=== PATIENT | female | born 2000 | race Caucasian/White ===

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

== ENCOUNTER 2018-05-28 23:38 | Emergency (ER) | payer MEDICAID ==
[~2018-05-28] VITALS: Ht 167.6 cm; Wt 68.9 kg
[2018-05-28 23:42] VITALS: BP 134/73
--- NOTE | 2018-05-28 23:49 | NUR ---
PT AMBULATED TO BED 7 WITH VSS.
--- NOTE | 2018-05-29 00:14 | NUR ---
PT PRESENTS TO ED WITH C/O VAGINAL BLEEDING X 1 DAY. PT REPORTS BLEEDING THROUGH PAD WITH DARK RED BLOOD. PT DENIES ABDOMINAL PAIN, N/V/D AT THIS TIME. PT DENIES ANY OTHER SYMPTOMS AT THIS TIME. PT PLACED INTO BED, PENDING MD SANCHES. PT REPORTS OF 1 MONTH. [id number]. PMH--ASMTHA RX--DENIES
[2018-05-29 00:21] LABS: APPEARANCE,URINE SL CLOUDY (CLEAR); BILIRUBIN,URINE NEGATIVE (NEGATIVE); BLOOD, URINE 3+ (NEGATIVE); COLOR,URINE YELLOW (YELLOW); LEUKOCYTE ESTERASE ,URINE NEGATIVE (NEGATIVE); NITRITE, URINE NEGATIVE (NEGATIVE); UGLUCOSE NEGATIVE (NEGATIVE)
[2018-05-29 00:22] LABS: BASOPHILS % (AUTO) 0.5 % (0.0-2.0); EOSINOPHILS # (AUTO) 0.1 K/uL (0-0.4); EOSINOPHILS % (AUTO) 0.7 % (0.0-4.0); HEMOGLOBIN 9.3 g/dL (12.0-16.0); LYMPHOCYTES # (AUTO) 2.7 K/uL (2.5-16.5); LYMPHOCYTES % (AUTO) 34.3 % (20.5-51.1); MEAN CORPUSCULAR HEMOGLOBIN 19 pg (27-31); MEAN CORPUSCULAR HGB CONC 30 g/dL (33-37); MONOCYTES # (AUTO) 0.7 K/uL (0.8-1.0); MONOCYTES % (AUTO) 8.2 % (1.7-9.3); NEUTROPHILS # (AUTO) 4.5 K/uL (1.8-7.7); NEUTROPHILS % (AUTO) 56.3 % (42.2-75.2); PLATELET COUNT (AUTO) 340 K/uL (140-450); RED BLOOD CELL COUNT(AUTO) 4.85 MIL/uL (4.20-5.40); WHITE BLOOD COUNT (AUTO) 7.9 K/uL (4.5-11.0)
[2018-05-29 00:29] LABS: HEMATOCRIT 27.9 % (36-48); MEAN CORPUSCULAR VOLUME 63.7 fL (80-94); RED CELL DISTRIBUTION WIDTH 20.7 % (11.6-13.7)
[2018-05-29 00:35] LABS: RBC,URINE 3-10 (FEW) /HPF (0-5); WBC,URINE 0-5 (RARE) /HPF (0-5)
[2018-05-29 00:46] VITALS: BP 134/73
--- NOTE | 2018-05-29 00:47 | NUR ---
Patient discharged with v/s stable. Written and verbal after care instructions given and explained. Patient verbalized understanding. Ambulatory with steady gait. All questions addressed prior to discharge. Advised to follow up with PMD.
== END 2018-05-29 00:47 | disposition home or self-care (01) ==
LOC: MED 23:38
DX: O03.9 Complete or unspecified spontaneous abortion without complication (principal); J45.909 Unspecified asthma, uncomplicated
CPT/HCPCS: 36415; 81001; 84702; 85025; 99283

== ENCOUNTER 2019-07-07 17:57 | Emergency (ER) | payer MEDICAID ==
[~2019-07-07] VITALS: Ht 167.6 cm; Wt 66.0 kg
[2019-07-07 18:04] VITALS: BP 124/62
--- NOTE | 2019-07-07 18:07 | NUR ---
AMBULATES TO BED 12
--- NOTE | 2019-07-07 18:13 | NUR ---
19 Y/O FEMALE C/O COUGH, ABD PAIN, AND VOMITING X 3 DAYS. STATES 3/10 SHARP PAIN TO ABD. 3 EPISODES OF VOMITING. DENIES DIARRHEA. STATES DRY, NON PRODUCTIVE COUGH. RR EVEN AND UNLABORED, NO ACCESSORY MUSCLE USE. PT SITTING UPRIGHT IN BED, TEARFUL. X 1 SIDE RAIL RAISED, BED LOCKED AND IN LOW POSITION. VSS. MEDHX: DENIES ALLERGIES: LATEX
--- NOTE | 2019-07-07 18:15 | NUR ---
DR JAMESON AT BEDSIDE EXAMINING PT
[2019-07-07] MEDS ORDERED: PROMETH/CODEINE 6.25-10MG/5ML 5 ML UDC PO ONE (18:20)
[2019-07-07] MEDS ORDERED: NACL 0.9% 1,000 ML IV ONE (18:20)
--- NOTE | 2019-07-07 18:30 | NUR ---
INFLUENZA SWAB COLLECTED FROM PT
--- NOTE | 2019-07-07 19:25 | NUR ---
PT C/O LUQ ABD PAIN X 3 DAYS WITH COUGH. PT APPEARS TO BE IN MILD DISTRESS. PT STATES N/V. DENIES DIARRHEA. PT DENIES FEVER. PT STATES HAVING SOME NIGHT SWEATS. PT ALSO C/O LEFT UPPER SCAPULA PAIN THAT HURTS WITH MOVEMENT OR COUGHING. PT VSS. SKIN IS PINK/WARM/DRY; AAOX4 WITH EVEN AND STEADY GAIT; LUNGS CLEAR BL; HR EVEN AND REGULAR; PT DENIES ANY FEVER, CP OR SOB AT THIS TIME; PATIENT STATES PAIN OF 3/10 AT THIS TIME; PATIENT POSITIONED FOR COMFORT; HOB ELEVATED; BEDRAILS UP X1; BED DOWN.
[2019-07-07] MEDS ORDERED: KETOROLAC 30 MG/ML VIAL IVP ONE (19:35)
--- NOTE | 2019-07-07 20:28 | NUR ---
PT AMBULATORY WITH STEADY GAIT TO RESTROOM WITH OUT ASSISTANCE.
--- NOTE | 2019-07-07 20:42 | NUR ---
PT ABLE TO GIVE URINE SAMPLE. PT AMBULATORY TO ROOM. VSS. NO CHANGES FROM PREVIOUS ASSESSMENT.
--- NOTE | 2019-07-07 22:40 | NUR ---
Patient discharged with v/s stable. Written and verbal after care instructions given and explained. Patient alert, oriented and verbalized understanding of instructions. Ambulatory with steady gait. All questions addressed prior to discharge. ID band removed. Patient advised to follow up with PMD. Rx of AGUMENTIN, NAPROSYN AND TESSALON given. Patient educated on indication of medication including possible reaction and side effects. Opportunity to ask questions provided and answered.
[2019-07-07 22:53] VITALS: BP 123/66
== END 2019-07-07 22:39 | disposition home or self-care (01) ==
LOC: MED 17:57
DX: J20.9 Acute bronchitis, unspecified (principal); J45.909 Unspecified asthma, uncomplicated
CPT/HCPCS: 87804; 96361; 96374; 99283; J1885; J7030

== ENCOUNTER 2020-03-14 14:48 | Emergency (ER) | payer SELFPAY ==
[~2020-03-14] VITALS: Ht 167.6 cm; Wt 63.5 kg
[2020-03-14 14:50] VITALS: BP 120/80
--- NOTE | 2020-03-14 15:00 | NUR ---
PATIENT WHEELCHAIR ASSISTED TO BED 4.
--- NOTE | 2020-03-14 15:05 | NUR ---
19 y/o female from home c/o left foot, ankle, and knee pain s/p falling off skateboard 2 days ago. Noticable swelling and bruising to foot and ankle. Pt able to ambulate but has increased pain. 8/10 throbbing pain. +cms, cap refill <2 seconds. Skin warm, dry, intact. Denies LOC. Awake and alert. VSS medhx: asthma
--- NOTE | 2020-03-14 15:07 | NUR ---
xray at bedside e
--- NOTE | 2020-03-14 15:34 | NUR ---
KLAUS Adams at bedside examining pt
--- NOTE | 2020-03-14 15:48 | NUR ---
Pt able to verbalize and return demonstrate crutch use.
[2020-03-14 15:49] VITALS: BP 120/80
--- NOTE | 2020-03-14 15:49 | NUR ---
Patient discharged with v/s stable. Written and verbal after care instructions given and explained. Patient alert, oriented and verbalized understanding of instructions. Ambulatory with steady gait. All questions addressed prior to discharge. ID band removed. Patient advised to follow up with PMD. Rx of Naprosyn 500mg given. Patient educated on indication of medication including possible reaction and side effects. Opportunity to ask questions provided and answered.
== END 2020-03-14 15:49 | disposition home or self-care (01) ==
LOC: MED 14:48
DX: S93.402A Sprain of unspecified ligament of left ankle, initial encounter (principal); S83.92XA Sprain of unspecified site of left knee, initial encounter; J45.909 Unspecified asthma, uncomplicated; Z98.890 Other specified postprocedural states; W19.XXXA Unspecified fall, initial encounter; Y93.51 Activity, roller skating (inline) and skateboarding; Y92.89 Other specified places as the place of occurrence of the external cause; Y99.8 Other external cause status
CPT/HCPCS: 73562; 73610; 73630; 99284; Q0092

== ENCOUNTER 2020-05-30 03:40 | Emergency (ER) | payer SELFPAY ==
[~2020-05-30] VITALS: Ht 170.2 cm; Wt 68.0 kg
[2020-05-30 03:43] VITALS: BP 122/50
--- NOTE | 2020-05-30 03:45 | NUR ---
TO LOBBY A/W BED AMBULATORY
--- NOTE | 2020-05-30 03:50 | NUR ---
SEEN AND EXAMINED BY MALLORY WITH ORDERS AND CARRIED OUT
--- NOTE | 2020-05-30 04:27 | NUR ---
UA COLLECTED AND SENT TO LAB.
--- NOTE | 2020-05-30 05:35 | NUR ---
PT AMBULATED TO [facility] FROM [facility].
--- NOTE | 2020-05-30 05:45 | NUR ---
20 Y/O FEMALE BIB SELF FOR C/O VAGINAL BLEEDING SINCE LAST NIGHT 2100. STATES SHE HAS BEEN BLEEDING MODERATELY. DENIES HAVING ANY PAST INJURIES. PT ALSO REPORTS BEING 7-8WEEKS , STATES SHE HAS NOT SEEN HER OBGYN AND THAT SHE HAS NOT BEEN ABLE TO DO CARE. DENIES HAVING ANY PAIN OR DISCOMFORT. PMHX: DENIES ALLX: LATEX
--- NOTE | 2020-05-30 05:50 | NUR ---
20 G IV SITE STARTED ON R AC, SITE WAS PATENT. FLUSHED WITH 10 ML OF 0.9% NS. BLOOD WAS DRAWN AND SENT TO LAB.
--- NOTE | 2020-05-30 07:02 | NUR ---
PT SITTING IN [place] IN NO ACUTE DISTRESS NOTED, AWAITING BLOOD RESULTS.
[2020-05-30 07:06] LABS: BASOPHILS # (AUTO) 0.1 K/uL (0.00-0.22); BASOPHILS % (AUTO) 0.8 % (0.0-2.0); EOSINOPHILS # (AUTO) 0.1 K/uL (0-0.4); EOSINOPHILS % (AUTO) 1.1 % (0.0-4.0); HEMATOCRIT 41.7 % (36-48); HEMOGLOBIN 13.9 g/dL (12.0-16.0); LYMPHOCYTES # (AUTO) 1.8 K/uL (2.5-16.5); LYMPHOCYTES % (AUTO) 18.2 % (20.5-51.1); MEAN CORPUSCULAR HEMOGLOBIN 29 pg (27-31); MEAN CORPUSCULAR HGB CONC 33 g/dL (33-37); MEAN CORPUSCULAR VOLUME 87.3 fL (80-94); MONOCYTES # (AUTO) 0.5 K/uL (0.8-1.0); MONOCYTES % (AUTO) 5.3 % (1.7-9.3); NEUTROPHILS # (AUTO) 7.4 K/uL (1.8-7.7); NEUTROPHILS % (AUTO) 74.6 % (42.2-75.2); PLATELET COUNT (AUTO) 321 K/uL (140-450); RED BLOOD CELL COUNT(AUTO) 4.78 MIL/uL (4.20-5.40); RED CELL DISTRIBUTION WIDTH 15.8 % (11.6-13.7); WHITE BLOOD COUNT (AUTO) 9.9 K/uL (4.8-10.8)
--- NOTE | 2020-05-30 07:20 | NUR ---
REPORT GIVEN TO JUSTA BONILLA FOR CONTINUITY OF CARE.
[2020-05-30 08:44] VITALS: BP 120/75
[2020-05-30 10:50] LABS: APPEARANCE,URINE CLEAR (CLEAR); BILIRUBIN,URINE NEGATIVE (NEGATIVE); BLOOD, URINE 1+ (NEGATIVE); COLOR,URINE YELLOW (YELLOW); LEUKOCYTE ESTERASE ,URINE NEGATIVE (NEGATIVE); NITRITE, URINE NEGATIVE (NEGATIVE); UGLUCOSE NEGATIVE (NEGATIVE)
[2020-05-30 14:52] LABS: RBC,URINE 11-20 (MOD) /HPF (0-5); WBC,URINE 0-5 /HPF (0-5)
== END 2020-05-30 08:44 | disposition home or self-care (01) ==
LOC: MED 03:40
DX: O20.0 Threatened abortion (principal); Z3A.01 Less than 8 weeks gestation of pregnancy; J45.909 Unspecified asthma, uncomplicated
CPT/HCPCS: 36415; 76817; 81001; 84702; 85025; 86900; 86901; 99284